=== PATIENT | male | born 1980 | race Caucasian/White ===

== ENCOUNTER 2017-07-30 15:55 | Emergency (ER) | payer OTHER ==
[~2017-07-30] VITALS: Ht 167.6 cm; Wt 74.1 kg
[2017-07-30 16:10] VITALS: BP 145/98
[2017-07-30] MEDS ORDERED: KETOROLAC 30 MG/1 ML ONE (16:41)
[2017-07-30] MEDS ORDERED: DIAZEPAM 5 MG TABLET ONE (16:41)
[2017-07-30] MEDS ORDERED: DIAZEPAM 5 MG TABLET PO ONE (17:00)
[2017-07-30] MEDS ORDERED: KETOROLAC 30 MG/1 ML IM ONE (17:00)
== END 2017-07-30 17:21 | disposition home or self-care (01) ==
LOC: ED 17:00
DX: S29.012A Strain of muscle and tendon of back wall of thorax, initial encounter (principal); V89.2XXA Person injured in unspecified motor-vehicle accident, traffic, initial encounter; Y93.89 Activity, other specified; Y92.89 Other specified places as the place of occurrence of the external cause; Y99.9 Unspecified external cause status
CPT/HCPCS: 96372; 99283; J1885

== ENCOUNTER 2018-01-16 12:14 | Emergency (ER) | payer SELFPAY ==
[~2018-01-16] VITALS: Ht 167.6 cm; Wt 72.7 kg
[2018-01-16 13:12] LABS: BASOPHILS # (AUTO) 0.05 x10^3/uL (0-0.1); BASOPHILS % (AUTO) 1 % (0-1); EOSINOPHILS # (AUTO) 0.04 x10^3/uL (0-0.4); EOSINOPHILS % (AUTO) 0 % (1-7); LYMPHOCYTES # (AUTO) 2.47 x10^3/uL (1-3.4); LYMPHOCYTES % (AUTO) 21 % (22-44); MD NO; MEAN CORPUSCULAR HEMOGLOBIN 29.8 pg (27.5-34.5); MEAN CORPUSCULAR HGB CONC 33.1 g/dL (33.2-36.2); MEAN CORPUSCULAR VOLUME 90.1 fL (81-97); MEAN PLATELET VOLUME 7.8 fL (7.4-10.4); MONOCYTES # (AUTO) 1.18 x10^3/uL (0.2-0.8); MONOCYTES % (AUTO) 10 % (2-9); NEUTROPHILS # (AUTO) 7.94 x10^3/uL (1.8-6.8); NEUTROPHILS % (AUTO) 68 % (42-75); PLATELET COUNT 391 x10^3/uL (130-400); RED BLOOD COUNT 5.16 x10^6/uL (4.38-5.82)
[2018-01-16 13:21] LABS: ALANINE AMINOTRANSFERASE 27 U/L (12-78); ALBUMIN 3.7 g/dL (3.4-5.0); ANION GAP 7 mmol/L (5-15); CALCIUM 8.6 mg/dL (8.5-10.1); CHLORIDE 106 mmol/L (98-107); CREATININE 1.09 mg/dL (0.7-1.3)
[2018-01-16 13:22] LABS: AMPHETAMINE SCREEN, URINE Positive (Negative); BARBITURATE SCREEN, URINE Negative (Negative); BENZODIAZEPINE SCREEN, URINE Negative (Negative); CANNABINOID SCREEN, URINE Negative (Negative); COCAINE SCREEN, URINE Negative (Negative); METHADONE SCREEN, URINE Negative (Negative); OPIATE SCREEN, URINE Negative (Negative)
[2018-01-16 13:31] LABS: ALKALINE PHOSPHATASE 87 U/L (45-117); BILIRUBIN,TOTAL 0.7 mg/dL (0.2-1.0); TOTAL PROTEIN 7.8 g/dL (6.4-8.2)
[2018-01-16 13:32] LABS: ACETAMINOPHEN < 2 mcg/mL (10-30); SALICYLATE LEVEL < 1.7 mg/dL (2.8-20.0)
[2018-01-16 13:55] VITALS: BP 162/103
== END 2018-01-16 14:41 | disposition home or self-care (01) ==
LOC: ED 13:00
DX: F29 Unspecified psychosis not due to a substance or known physiological condition (principal); F15.10 Other stimulant abuse, uncomplicated; Z79.899 Other long term (current) drug therapy
CPT/HCPCS: 36415; 80053; 80307; 80329; 84443; 85025; 93005; 99285; G0480

== ENCOUNTER 2018-03-18 01:36 | Emergency (ER) | payer SELFPAY | END 2018-03-18 02:03 | disposition left against medical advice (07) | LOC: ED 02:00 | DX: R10.9 Unspecified abdominal pain (principal); Z53.21 Procedure and treatment not carried out due to patient leaving prior to being seen by health care provider ==

== ENCOUNTER 2018-10-21 03:16 | Emergency (ER) | payer MEDICAID, OTHER ==
[~2018-10-21] VITALS: Ht 167.6 cm; Wt 80.4 kg
[2018-10-21 03:19] VITALS: BP 145/100
[2018-10-21] MEDS ORDERED: DIPHENHYDRAMINE 25 MG CAPSULE ONE (03:41)
[2018-10-21] MEDS ORDERED: PROCHLORPERAZINE 10MG TABLET ONE (03:41)
[2018-10-21] MEDS ORDERED: ACETAMINOPHEN 500 MG TABLET ONE (03:41)
[2018-10-21] MEDS ORDERED: DIPHENHYDRAMINE 25 MG CAPSULE PO ONE (04:00)
[2018-10-21] MEDS ORDERED: PROCHLORPERAZINE 10MG TABLET PO PRN (04:00)
[2018-10-21] MEDS ORDERED: ACETAMINOPHEN 325 MG TABLET PO ONE (04:00)
== END 2018-10-21 04:36 | disposition home or self-care (01) ==
LOC: ED 04:15
DX: G44.209 Tension-type headache, unspecified, not intractable (principal); Z72.9 Problem related to lifestyle, unspecified
CPT/HCPCS: 99284; Q0163; Q0164

== ENCOUNTER 2020-04-01 04:36 | Emergency (ER) | payer MEDICAID, OTHER ==
[~2020-04-01] VITALS: Ht 167.6 cm; Wt 72.0 kg
--- NOTE | 2020-04-01 04:50 | NUR ---
THIS IS A 39Y M THAT COMES IN TONIGHT AFTER "HAVING A PANIC ATTACK WHILE CHECKING INTO A LONG TERM TONIGHT." PT STS THEY CALLED AN AMBULANCE AND HE RAN AWAY BECAUSE HE'S SCARED. PT HAS CALM DISPOSITION, BREATHING AT A NORMAL RATE NADN, HTN NOTED PER PT HE HAS BEEN TOLD HE HAS HIGH BLOOD PRESSURE BUT CAN'T REMEMBER IF HE IS SUPPOSED TO TAKE MEDS FOR IT. PT NOW SLEEPING ON GURNEY CONNECTED TO MONITORING
[2020-04-01 05:01] VITALS: BP 144/99
--- NOTE | 2020-04-01 05:25 | NUR ---
PT D/C WITH D/C SUMMARY. ALL QUESTIONS ANSWERED. PT AMBULATES TO REGISTRATION DESK WITH STEADY GAIT FOR D/C HOME. PT PROVIDED WITH BUS PASS. PT DENIES ANY OTHER NEEDS PERTAINING TO THIS VISIT.
== END 2020-04-01 05:33 | disposition home or self-care (01) ==
LOC: ED 05:15
DX: Z00.00 Encounter for general adult medical examination without abnormal findings (principal)
CPT/HCPCS: 99281

== ENCOUNTER 2020-10-16 02:05 | Emergency (ER) | payer SELFPAY ==
[~2020-10-16] VITALS: Ht 167.6 cm; Wt 79.5 kg
[2020-10-16] MEDS ORDERED: ZIPRASIDONE 20 MG INJ IM ONE ×2 (02:23→02:30)
--- NOTE | 2020-10-16 02:40 | NUR ---
PT HERE FOR PARANOIA DUE TO 5 DAYS OF METH USE. PT WAS TACHYCARDIC IN TRIAGE. PT MEDICATED WITH GEODON. PT SAYS HE HASNT SLEPT IN 5 DAYS SINCE HE GOT OUT OF USP. PT PLACED ON PULSE OX AND BP MONITORING. CALL LIGHT IN REACH
[2020-10-16 03:32] VITALS: BP 149/93
--- NOTE | 2020-10-16 03:33 | NUR ---
PT MORE CALM. FRIEND AT BEDSIDE TO GIVE RIDE HOME. PT AGREEABLE TO PLAN. PT AMBULATED OUT OF ER WITH A STEADY GAIT
== END 2020-10-16 03:36 | disposition home or self-care (01) ==
LOC: ED 02:27
DX: F15.10 Other stimulant abuse, uncomplicated (principal); F16.10 Hallucinogen abuse, uncomplicated
CPT/HCPCS: 96372; 99283; J3486

== ENCOUNTER 2020-10-16 23:51 | Emergency (ER) | payer SELFPAY ==
[~2020-10-16] VITALS: Ht 162.6 cm; Wt 81.1 kg
--- NOTE | 2020-10-17 02:58 | NUR ---
PT TO ROOM FROM LOBBY
[2020-10-17] MEDS ORDERED: OLANZAPINE 5 MG TABLET ONE (03:15)
[2020-10-17] MEDS ORDERED: LORazepam 1MG TABLET ONE (03:15)
--- NOTE | 2020-10-17 03:26 | NUR ---
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
[2020-10-17] MEDS ORDERED: LORazepam 1MG TABLET PO ONE (03:30)
[2020-10-17] MEDS ORDERED: OLANZAPINE 5 MG TABLET PO SCH (03:30)
--- NOTE | 2020-10-17 04:15 | NUR ---
ATTEMPTED TO DISCHARGE PATIENT. PATIENT STATED THAT HE NEEDED A RIDE HOME. PATIENT GIVEN BUS PASS. PATIENT GIVEN DISCHARGE INSTRUCTIONS, PATIENT VERBALIZED UNDERSTANDNING. PATIENT STATED THAT HE COULD NOT WALK, PATIENT WAS WALKING WITHOUT COMPLICATIONS WHILE MAKING STATEMENT. PATIENT'S VITAL SIGNS ARE STABLE. PATIENT REQUESTED TO BE EVALUATED BY MD PRIOR TO BEING DISCHARGE. MD TO BEDSIDE TO EVALUATE PATIENT FOR SAFE DISCHARGE. PATIENT HAS BEEN CLEARED FOR DISCHARGE.
--- NOTE | 2020-10-17 04:16 | NUR ---
PATIENT AMBUALTORY TO DISCHARGE DESK WITHOUT COMPLICATIONS, WITH BELONGINGS.
[2020-10-17 04:17] VITALS: BP 130/87
== END 2020-10-17 04:19 | disposition home or self-care (01) ==
LOC: ED 10-17 04:00
DX: F15.10 Other stimulant abuse, uncomplicated (principal); F19.14 Other psychoactive substance abuse with psychoactive substance-induced mood disorder; F41.9 Anxiety disorder, unspecified; F17.210 Nicotine dependence, cigarettes, uncomplicated
CPT/HCPCS: 99283; 99406

== ENCOUNTER 2020-10-17 07:00 | Emergency (ER) | payer SELFPAY ==
[~2020-10-17] VITALS: Ht 167.6 cm; Wt 72.0 kg
--- NOTE | 2020-10-17 07:16 | NUR ---
Pt arousable to painful stimuli only, not verbally responsive, pupils pinpoint, BG 83. VSWNL.
[2020-10-17] MEDS ORDERED: NALOXONE 0.4 MG/ML, 1ML ONE (07:26)
[2020-10-17] MEDS ORDERED: SODIUM CHLORIDE 0.9% 1,000ML IVBOLUS ONE (07:30)
[2020-10-17] MEDS ORDERED: NALOXONE 0.4 MG/ML, 1ML IVPush PRN (07:30)
[2020-10-17 07:49] LABS: BASOPHILS % (AUTO) 1 % (0-1); EOSINOPHILS % (AUTO) 0 % (1-7); LYMPHOCYTES % (AUTO) 14 % (22-44); MEAN CORPUSCULAR HEMOGLOBIN 30.9 pg (27.5-34.5); MEAN CORPUSCULAR HGB CONC 34.3 g/dL (33.2-36.2); MEAN PLATELET VOLUME 7.9 fL (7.4-10.4); MONOCYTES % (AUTO) 14 % (2-9); NEUTROPHILS % (AUTO) 71 % (42-75); PLATELET COUNT 281 x10^3/uL (130-400); RED BLOOD COUNT 5.14 x10^6/uL (4.38-5.82); RED CELL DISTRIBUTION WIDTH 13.1 % (9.4-14.8)
[2020-10-17 07:55] LABS: MD NO
[2020-10-17 08:00] LABS: ALBUMIN 3.6 g/dL (3.4-5.0); ANION GAP 7 mmol/L (5-15); CALCIUM 8.9 mg/dL (8.5-10.1); CHLORIDE 103 mmol/L (98-107)
[2020-10-17 08:04] LABS: ALANINE AMINOTRANSFERASE 32 U/L (12-78); ALKALINE PHOSPHATASE 76 U/L (45-117); BILIRUBIN,TOTAL 0.8 mg/dL (0.2-1.0); CREATININE 1.17 mg/dL (0.7-1.3); TOTAL PROTEIN 8.7 g/dL (6.4-8.2)
[2020-10-17 08:09] LABS: SALICYLATE LEVEL < 1.7 mg/dL (2.8-20.0)
--- NOTE | 2020-10-17 08:10 | NUR ---
No change in baseline. VS updated
--- NOTE | 2020-10-17 08:45 | NUR ---
Pt somewhat more arousable, speech still incomprehensible.
--- NOTE | 2020-10-17 10:04 | NUR ---
ERP at bedside. Pt continues to be more awake. VS updated.
--- NOTE | 2020-10-17 11:09 | NUR ---
To DC when more awake and alert. Pt alert to verbal stimulus.
[2020-10-17 12:55] VITALS: BP 110/56
--- NOTE | 2020-10-17 12:56 | NUR ---
Pt AO X 4, able to ambulate.
== END 2020-10-17 13:02 | disposition home or self-care (01) ==
LOC: ED 10:12
DX: F19.10 Other psychoactive substance abuse, uncomplicated (principal); G92 Toxic encephalopathy; F15.10 Other stimulant abuse, uncomplicated; R41.82 Altered mental status, unspecified; R00.0 Tachycardia, unspecified; R94.31 Abnormal electrocardiogram [ECG] [EKG]; Z72.9 Problem related to lifestyle, unspecified
CPT/HCPCS: 36415; 80053; 80299; 80320; 80329; 85025; 93005; 96361; 96374; 99285; J2310; J7030; G0480

== ENCOUNTER 2020-11-16 18:26 | Emergency (ER) | payer OTHER ==
[~2020-11-16] VITALS: Ht 167.6 cm; Wt 72.3 kg
--- NOTE | 2020-11-16 18:57 | NUR ---
Patient ambulated back to room
--- NOTE | 2020-11-16 19:00 | NUR ---
REPORT TO ARIEL, TRANSFER OF CARE AT THIS TIME.
[2020-11-16 19:25] VITALS: BP 156/91
== END 2020-11-16 20:04 | disposition home or self-care (01) ==
LOC: ED 19:55
DX: R53.83 Other fatigue (principal); Z20.822 Contact with and (suspected) exposure to COVID-19
CPT/HCPCS: 87635; 99283

== ENCOUNTER 2020-12-20 05:03 | Emergency (ER) | payer MEDICAID ==
[~2020-12-20] VITALS: Ht 165.1 cm; Wt 71.3 kg
[2020-12-20 05:05] VITALS: BP 144/91
[2020-12-20] MEDS ORDERED: DIPHENHYDRAMINE 50 MG CAPSULE PO ONE (05:30)
[2020-12-20] MEDS ORDERED: DIPHENHYDRAMINE 50 MG CAPSULE ONE (05:39)
== END 2020-12-20 05:51 | disposition home or self-care (01) ==
LOC: ED 05:29
DX: F51.01 Primary insomnia (principal); Z20.822 Contact with and (suspected) exposure to COVID-19; F41.9 Anxiety disorder, unspecified
CPT/HCPCS: 87635; 99283

== ENCOUNTER 2021-06-16 03:14 | Emergency (ER) | payer MEDICAID ==
[~2021-06-16] VITALS: Ht 167.6 cm; Wt 68.2 kg
[2021-06-16 03:16] VITALS: BP 151/106
--- NOTE | 2021-06-16 03:36 | NUR ---
pt presents to the ed with abd pain. pt states it does not hurt when palpated but that he has "plastic transparent pieces in his abdomen and his ass is in his stomach." pt in gown, resting on gurney, and placed on continuous monitoring.
[2021-06-16] MEDS ORDERED: OLANZAPINE ODT 10MG ONE (03:40)
[2021-06-16] MEDS ORDERED: LORazepam 1MG TABLET ONE (03:40)
--- NOTE | 2021-06-16 03:44 | NUR ---
pt denies SI/SA/HI and feels safe to discard after medication. pt to bathroom after taking medication.
[2021-06-16] MEDS ORDERED: OLANZAPINE 10 MG TABLET PO ONE (04:00)
[2021-06-16] MEDS ORDERED: LORazepam 1MG TABLET PO ONE (04:00)
--- NOTE | 2021-06-16 04:04 | NUR ---
Patient given discharge instructions and they have confirmed that they understand the instructions. Patient ambulatory with steady gait.
== END 2021-06-16 04:06 | disposition home or self-care (01) ==
LOC: ED 03:52
DX: F41.1 Generalized anxiety disorder (principal); F15.122 Other stimulant abuse with intoxication with perceptual disturbance
CPT/HCPCS: 99283